=== PATIENT | female | born 1995 | race African-American/Black ===

== ENCOUNTER 2017-07-20 09:43 | Emergency (ER) | payer OTHER ==
[2017-07-20 11:11] LABS: BASO % 0.4 % (0.0-1.0); EOS % 0.2 % (0.0-3.0); HEMATOCRIT 32.3 % (36.0-47.0); HEMOGLOBIN 9.7 g/dl (12.0-15.5); IMMATURE GRANULOCYTE % 0.2 % (0-3.0); LYMPH # 3.4 10^3/uL (1.5-6.5); LYMPH % 36.1 % (24.0-44.0); MEAN CORPUSCULAR HEMOGLOBIN 20.6 pg (27.0-33.0); MEAN CORPUSCULAR VOLUME 68.4 fl (80.0-96.0); MONO # 0.6 10^3/uL (0.0-0.8); MONO % 6.5 % (0.0-5.0); NEUTROPHILS # 5.3 10^3/uL (1.8-7.7); NEUTROPHILS % 56.6 % (36.0-66.0); PLATELET COUNT, AUTOMATED 387 10^3/uL (150-450); RED BLOOD COUNT 4.72 10^6/uL (4.00-5.40); RED CELL DISTRIBUTION WIDTH 17.9 % (11.5-14.5); WHITE BLOOD COUNT 9.4 10^3/uL (4.0-10.0)
[2017-07-20 11:21] LABS: KETONE, URINE AUTO RFX NEGATIVE (NEGATIVE); MUCUS, URINE RFX MODERATE (NEGATIVE); NITRITE, URINE AUTO RFX NEGATIVE (NEGATIVE); RBC, URINE AUTO RFX 2 /HPF (0-3); SPECIFIC GRAVITY UR AUTO RFX 1.036 (1.002-1.035); SQUAM EPITHELIAL CELL UR AURFX 1 /HPF (0-6); WBC, URINE AUTO RFX 6 /HPF (0-3)
[2017-07-20 12:02] LABS: LEUKOCYTE ESTERASE UR AUTO RFX TRACE (NEGATIVE)
[2017-07-20 12:14] LABS: HCG, SERUM QUANTITATIVE 63382 MIU/ML
== END 2017-07-20 12:30 | disposition home or self-care (01) ==
LOC: M ED 09:43
DX: Z32.01 Encounter for pregnancy test, result positive (principal); Z3A.09 9 weeks gestation of pregnancy; O10.92 Unspecified pre-existing hypertension complicating childbirth
CPT/HCPCS: 76801

== ENCOUNTER 2017-11-07 22:53 | Emergency (ER) | payer OTHER ==
[2017-11-08] MEDS: GI COCKTAIL 50ML BTL(HYOSCYAMINE/MAALOX/LIDOCAINE VISCOUS)(1:3:1) PO (00:31)
[2017-11-08 00:48] LABS: BASO % 0.2 % (0.0-1.0); EOS # 0.1 10^3/uL (0.0-0.50); EOS % 0.5 % (0.0-3.0); HEMATOCRIT 24.5 % (36.0-47.0); HEMOGLOBIN 7.4 g/dl (12.0-15.5); IMMATURE GRANULOCYTE % 0.7 % (0-3.0); LYMPH # 2.4 10^3/uL (1.5-6.5); LYMPH % 15.5 % (24.0-44.0); MEAN CORPUSCULAR HGB CONC 30.2 g/dl (32.0-36.5); MEAN CORPUSCULAR VOLUME 69.4 fl (80.0-96.0); MONO # 1.1 10^3/uL (0.0-0.8); MONO % 7.2 % (0.0-5.0); NEUTROPHILS # 11.8 10^3/uL (1.8-7.7); NEUTROPHILS % 75.9 % (36.0-66.0); PLATELET COUNT, AUTOMATED 351 10^3/uL (150-450); RED BLOOD COUNT 3.53 10^6/uL (4.00-5.40); RED CELL DISTRIBUTION WIDTH 17.8 % (11.5-14.5); WHITE BLOOD COUNT 15.6 10^3/uL (4.0-10.0)
[2017-11-08 00:53] LABS: PROTHROMBIN TIME 13.3 SECONDS (12.1-14.4)
[2017-11-08 00:55] LABS: PARTIAL THROMBOPLASTIN TIME 24.5 SECONDS (25.4-37.6)
[2017-11-08 00:57] LABS: D-DIMER QUANT 1535.4 ng/ml (<500)
[2017-11-08 01:04] LABS: ALBUMIN 2.5 GM/DL (3.2-5.2); ALBUMIN/GLOBULIN RATIO 0.68 (1.00-1.93); ALKALINE PHOSPHATASE 120 U/L (45-117); ALT/SGPT 20 U/L (12-78); ANION GAP 8 MEQ/L (8-16); AST/SGOT 18 U/L (7-37); BILIRUBIN,DIRECT < 0.1 MG/DL (0.0-0.2); BILIRUBIN,TOTAL 0.2 MG/DL (0.2-1.0); BLOOD UREA NITROGEN 6 MG/DL (7-18); CALCIUM LEVEL 8.5 MG/DL (8.5-10.1); CARBON DIOXIDE LEVEL 23 MEQ/L (21-32); CHLORIDE LEVEL 108 MEQ/L (98-107); CPK CREATINE PHOSPHOKINASE 39 U/L (26-192); CREATININE FOR GFR 0.54 MG/DL (0.55-1.30); GLOMERULAR FILTRATION RATE > 60.0 (>60); GLUCOSE, FASTING 84 MG/DL (70-100); LIPASE 124 U/L (73-393); POTASSIUM SERUM 3.9 MEQ/L (3.5-5.1); SODIUM LEVEL 139 MEQ/L (136-145); TOTAL PROTEIN 6.2 GM/DL (6.4-8.2); TROPONIN I < 0.02 NG/ML (< 0.10)
[2017-11-08 01:05] LABS: CK-MB VALUE MASS < 1.0 NG/ML (<3.6); MB/CK RELATIVE INDEX 2.56 (< OR =4)
== END 2017-11-08 02:06 | disposition home or self-care (01) ==
LOC: M ED 11-08 02:06
DX: O99.612 Diseases of the digestive system complicating pregnancy, second trimester (principal); K21.9 Gastro-esophageal reflux disease without esophagitis; O99.012 Anemia complicating pregnancy, second trimester; D64.9 Anemia, unspecified; I10 Essential (primary) hypertension; Z3A.26 26 weeks gestation of pregnancy; O09.892 Supervision of other high risk pregnancies, second trimester
CPT/HCPCS: 93970

== ENCOUNTER 2019-01-19 16:24 | Emergency (ER) | payer OTHER ==
[~2019-01-19] VITALS: Ht 162.6 cm; Wt 80.0 kg
[~2019-01-19 16:24] MED LIST: FE T325T PO; PREN1TAB11 PO; ZANT300T9 PO
[2019-01-19 17:24] LABS: APPEARANCE, URINE CLEAR (CLEAR); BACTERIA, URINE AUTO 2+ (NEGATIVE); BILIRUBIN, URINE AUTO NEGATIVE (NEGATIVE); BLOOD, URINE BLOOD NEGATIVE (NEGATIVE); COLOR, URINE YELLOW (YELLOW); GLUCOSE, URINE (UA) AUTO NEGATIVE (NEGATIVE); KETONE, URINE AUTO NEGATIVE (NEGATIVE); LEUKOCYTE ESTERASE, URINE AUTO 1+ (NEGATIVE); MUCUS, URINE SMALL (NEGATIVE); NITRITE, URINE AUTO NEGATIVE (NEGATIVE); PROTEIN, URINE AUTO NEGATIVE (NEGATIVE); RBC, URINE AUTO 5 /HPF (0-3); SPECIFIC GRAVITY URINE AUTO 1.017 (1.002-1.035); SQUAMOUS EPITHELIAL CELL UR AU 1 /HPF (0-6); TRANSITIONAL EPITHELIAL AUTO 1 /HPF; UROBILINOGEN, URINE AUTO 0.2 mg/dL (0.0-2.0); WBC, URINE AUTO 51 /HPF (0-3)
[2019-01-19 17:25] LABS: BASO # 0.1 10^3/uL (0.0-0.2); BASO % 0.5 % (0.0-1.0); EOS # 0.1 10^3/uL (0.0-0.5); EOS % 0.6 % (0.0-3.0); HEMATOCRIT 30.6 % (36.0-47.0); HEMOGLOBIN 9.2 g/dl (12.0-15.5); LYMPH % 36.8 % (24.0-44.0); MEAN CORPUSCULAR HEMOGLOBIN 21.2 pg (27.0-33.0); MEAN CORPUSCULAR HGB CONC 30.1 g/dl (32.0-36.5); MEAN CORPUSCULAR VOLUME 70.5 fl (80.0-96.0); MONO # 0.7 10^3/uL (0.0-0.8); MONO % 6.3 % (0.0-5.0); NEUTROPHILS # 6.1 10^3/uL (1.5-8.5); NEUTROPHILS % 55.6 % (36.0-66.0); PLATELET COUNT, AUTOMATED 383 10^3/uL (150-450); RED BLOOD COUNT 4.34 10^6/uL (4.00-5.40); WHITE BLOOD COUNT 10.9 10^3/uL (4.0-10.0)
--- NOTE | 2019-01-19 18:57 | REPVR ---
PROCEDURE INFORMATION: Exam: US First Trimester, Transabdominal Exam date and time: 01/19/2019 5:51 PM Age: 23 years old Clinical history: Lmp or gestational age (in weeks): 10; Antepartum complications; Bleeding; ; Additional info: PT with spotting and lower back pain in 1st trimester TECHNIQUE: Imaging protocol: Real-time transabdominal obstetrical ultrasound of the maternal pelvis and a first trimester , less than 14 weeks 0 days, with image documentation. COMPARISON: No relevant prior studies available. FINDINGS: There is a twin which is diamniotic dichorionic. There is concordant growth of each twin. Twin A: [place]-rump length 3.2 CM consistent with 10 weeks 1 day. There is good cardiac motion at 160 beats per minute. Twin A is the presenting twin and towards the left. Twin B: [place]-rump length 3.0 cm with a gestational age 9 weeks 6 days. There is good cardiac motion 163 beats per minute. Twin B is the higher twin and more towards the right. There is a very small amount of subchorionic hemorrhage posterior in location and measuring only 1.5 CM by 6 mm. This is located between the 2 gestational sacs. The left ovary measures 4.2 CM in length by 2.2 CM in thickness. There is good vascular flow with no evidence of torsion. A left hemorrhagic corpus luteum cyst is identified measuring approximately 2.8 CM. No right adnexal process seen. This is very early in gestation and all parameters cannot be assessed. Therefore a complete survey should be done at 18-20 weeks gestation. IMPRESSION: 1. Presenting twin A is 10 weeks 1 day with good cardiac motion. 2. More superior twin B is 9 weeks 6 days with good cardiac motion. 3. This is very early in gestation and all parameters cannot be assessed therefore a complete survey should be done at 18-20 weeks gestation. 4. There is a small subchorionic bleed posterior in location. Electronically signed by: Jaime Moody On 01/19/2019 18:57:30 PM
[2019-01-19] MEDS ORDERED: NITR-67 PO (19:15)
[2019-01-19 19:28] VITALS: BP 145/80
[2019-01-21] MEDS ORDERED: KEFL500C17 PO (18:31)
== END 2019-01-19 19:31 | disposition home or self-care (01) ==
LOC: M ED 16:24
DX: O23.41 Unspecified infection of urinary tract in pregnancy, first trimester (principal); O26.851 Spotting complicating pregnancy, first trimester; O30.041 Twin pregnancy, dichorionic/diamniotic, first trimester; O26.891 Other specified pregnancy related conditions, first trimester; M54.5 Low back pain; Z3A.10 10 weeks gestation of pregnancy

== ENCOUNTER 2019-03-17 11:46 | Outpatient (CLI) | payer OTHER ==
[~2019-03-17] VITALS: Ht 162.6 cm; Wt 80.0 kg
[~2019-03-17 11:46] MED LIST changes: +KEFL500C17 PO; +NITR-67 PO
[2019-03-17 11:50] VITALS: BP 131/71
[2019-03-17 12:45] VITALS: BP 127/69
[2019-03-17] MEDS ORDERED: IRON SUCROSE 300 MG in NS 250 ML OVER 90 MIN. IV ONE (13:00)
[2019-03-17 13:45] VITALS: BP 124/66
[2019-03-17 14:45] VITALS: BP 121/56
[2019-03-17 15:45] VITALS: BP 120/65
[2019-03-17 16:15] VITALS: BP 127/66
== END 2019-03-17 16:18 | disposition home or self-care (01) ==
LOC: M INFU 11:46
PROVIDERS: ATTEND Obstetrics & Gynecology
DX: O99.012 Anemia complicating pregnancy, second trimester (principal); D50.9 Iron deficiency anemia, unspecified; O30.042 Twin pregnancy, dichorionic/diamniotic, second trimester; Z3A.17 17 weeks gestation of pregnancy
CPT/HCPCS: 96365; 96366; J1756

== ENCOUNTER 2019-03-24 11:36 | Outpatient (CLI) | payer OTHER ==
[~2019-03-24] VITALS: Ht 162.6 cm; Wt 80.0 kg
[2019-03-24 11:40] VITALS: BP 125/67
[2019-03-24] MEDS ORDERED: IRON SUCROSE 300 MG in NS 250 ML OVER 90 MIN. IV ONE (12:00)
[2019-03-24 12:30] VITALS: BP 137/62
[2019-03-24 13:30] VITALS: BP 124/61
[2019-03-24 14:30] VITALS: BP 128/61
[2019-03-24 15:10] VITALS: BP 105/55
[2019-03-24 15:30] VITALS: BP 111/75
== END 2019-03-24 15:30 | disposition home or self-care (01) ==
LOC: M INFU 11:36
PROVIDERS: ATTEND Obstetrics & Gynecology
DX: O99.012 Anemia complicating pregnancy, second trimester (principal); D50.9 Iron deficiency anemia, unspecified; O30.042 Twin pregnancy, dichorionic/diamniotic, second trimester; Z3A.17 17 weeks gestation of pregnancy
CPT/HCPCS: 96365; 96366; J1756

== ENCOUNTER 2019-03-31 11:22 | Outpatient (CLI) | payer OTHER ==
[~2019-03-31] VITALS: Ht 152.4 cm; Wt 80.0 kg
[2019-03-31 11:39] VITALS: BP 137/60
[2019-03-31 12:10] VITALS: BP 118/66
[2019-03-31] MEDS ORDERED: IRON SUCROSE 300 MG in NS 250 ML OVER 90 MIN. IV ONE (13:00)
[2019-03-31 13:10] VITALS: BP 122/60
[2019-03-31 14:02] VITALS: BP 110/56
[2019-03-31] MEDS ORDERED: PREN1CHW6 PO (14:28)
[2019-03-31 14:40] VITALS: BP 127/59
[2019-03-31 15:00] VITALS: BP 138/66
== END 2019-03-31 15:00 | disposition home or self-care (01) ==
LOC: M INFU 11:22
PROVIDERS: ATTEND Obstetrics & Gynecology
DX: O99.012 Anemia complicating pregnancy, second trimester (principal); O30.042 Twin pregnancy, dichorionic/diamniotic, second trimester; Z3A.17 17 weeks gestation of pregnancy
CPT/HCPCS: 96365; 96366; J1756